=== PATIENT | male | born 1945 | race Caucasian/White ===

== ENCOUNTER 2021-02-07 12:10 | Emergency (ER) | payer MEDICARE ==
[~2021-02-07] VITALS: Ht 172.7 cm; Wt 113.0 kg
[2021-02-07] MEDS ORDERED: METOPROL TAR25 MG PO (12:48)
[2021-02-07] MEDS ORDERED: OMEPRAZOLE DR20 MG PO (12:49)
[2021-02-07] MEDS ORDERED: ATORVASTATIN CA40 MG PO (12:50)
[2021-02-07] MEDS ORDERED: VALSARTAN40 MG PO (12:51)
[2021-02-07] MEDS ORDERED: ASPIRIN81 MG PO (12:52)
[2021-02-07] MEDS ORDERED: TRULICITY0.75 MG/0. SC (12:53)
[2021-02-07] MEDS ORDERED: TRULICITY1.5 MG/0.5 SC (12:56)
[2021-02-07] MEDS ORDERED: GLIMEPIRIDE4 MG PO (12:58)
[2021-02-07] MEDS ORDERED: SERTRALINE25 MG PO (12:59)
[2021-02-07 13:23] LABS: HEMATOCRIT 40.3 % (39.0-50.0); HEMOGLOBIN 12.8 g/dl (14.0-18.0); IMMATURE GRANULOCYTES 0.3 % (0.0-5.0); MEAN CELL VOLUME 85.4 fL CALC (80.0-100.0); MEAN CORPUSCULAR HGB 27.1 pG CALC (26.0-32.0); MEAN CORPUSCULAR HGB CONC 31.8 g/dL CAL (32.0-36.0); NEUT# 5.66 thou/uL (1.82-7.42); RED BLOOD COUNT 4.72 mill/uL (4.70-6.10)
[2021-02-07 13:23] LABS: URINE BILIRUBIN - DIPSTICK NEGATIVE (NEGATIVE); URINE BLOOD DIPSTICK MODERATE (NEGATIVE); URINE COLOR YELLOW; URINE GLUCOSE - DIPSTICK >=1000 mg/dL (NEGATIVE); URINE KETONE NEGATIVE (NEGATIVE); URINE LEUK ESTERASE NEGATIVE (NEGATIVE); URINE PH 5.5 (4.5-8.0); URINE PROTEIN - DIPSTICK NEGATIVE (NEG-TRACE); URINE SPECIFIC GRAVITY 1.025; URINE UROBILINOGEN - DIPSTICK 0.2 E.U./dL (0.2)
[2021-02-07 13:33] LABS: URINE NITRITE - DIPSTICK NEGATIVE (Negative)
[2021-02-07 13:57] LABS: ACT PARTIAL THROMBO TIME 23.6 SECONDS (20.0-32.5); ALBUMIN 4.1 g/dL (3.2-5.0); ALKALINE PHOSPHATASE 135 u/l (38-126); AMYLASE 64 u/l (30-110); ANION GAP 14 (6-22 (CALC)); BILIRUBIN, TOTAL 0.4 mg/dL (0.0-1.4); BUN 14 mg/dL (8-23); BUN/CREATININE RATIO 15 (12-20 (CALC)); CARBON DIOXIDE 22 mmol/l (22-30); CHLORIDE 104 mmol/l (95-108); CREATININE 0.9 mg/dL (0.7-1.3); GFR > 60 ML/MIN (>=60 (CALC)); GFR FOR AFR.AMER. > 60 ML/MIN (>=60 (CALC)); INTERNATIONAL NORMALIZED RATIO 0.9 RATIO (0.7-1.3); LIPASE 101 u/l (23-300); POTASSIUM 4.2 mmol/l (3.5-5.1); PROTHROMBIN TIME 9.7 SECONDS (9.0-12.5); SGOT/AST 32 u/l (19-48); SODIUM 135 mmol/l (137-146); TOTAL PROTEIN 7.4 g/dL (6.3-8.2)
[2021-02-07 15:30] VITALS: BP 158/86
[2021-02-07] MEDS ORDERED: HYDROCO/APAP1 TA9 PO (15:45)
[2021-02-07] MEDS ORDERED: LOMOTIL2.5 MG PO (15:45)
[2021-02-07] MEDS ORDERED: ZOFRAN4 MG/TAB PO (15:45)
== END 2021-02-07 16:05 | disposition home or self-care (01) ==
LOC: ED 12:10
DX: N13.2 Hydronephrosis with renal and ureteral calculous obstruction (principal); K58.0 Irritable bowel syndrome with diarrhea; E11.65 Type 2 diabetes mellitus with hyperglycemia; I10 Essential (primary) hypertension; E78.00 Pure hypercholesterolemia, unspecified; Z95.1 Presence of aortocoronary bypass graft; Z79.84 Long term (current) use of oral hypoglycemic drugs; Z87.442 Personal history of urinary calculi
CPT/HCPCS: Q9967